=== PATIENT | female | born 1980 | race Caucasian/White ===

== ENCOUNTER 2023-11-10 04:09 | Day surgery (SDC) | payer OTHER ==
[2023-11-09 11:23] VITALS: BMI 23.6
[~2023-11-10 04:09] MED LIST: LIDOCAINE HCL 1%, 10 MG/ML (20ML VIAL) INF ONE; ceFAZolin SODIUM 1 GM VIAL IVPB ONE
[2023-11-10] MEDS ORDERED: LIDOCAINE HCL 1%, 10 MG/ML (20ML VIAL) ONE (14:25)
[2023-11-10] MEDS ORDERED: PROPOFOL 20 ML ONE (15:16)
[2023-11-10] MEDS ORDERED: MIDAZOLAM HCL 2 MG/2 ML SINGLE DOSE VIAL ONE (15:16)
[2023-11-10] MEDS ORDERED: ceFAZolin SODIUM 1 GM VIAL IVPB ONE (15:20)
[2023-11-10] MEDS ORDERED: LIDOCAINE HCL 1%, 10 MG/ML (20ML VIAL) INF ONE ×2 (15:24)
[2023-11-10 16:16] VITALS: RESP 20; TEMP 97.9
[2023-11-10 16:58] VITALS: BP 125/80; PULSE 58
[2023-11-10] MEDS ORDERED: ADENOSINE 6 MG/2 ML VIAL IVPUSH ONE (16:59)
== END 2023-11-10 17:00 | disposition home or self-care (01) ==
LOC: JASU-SURG 04:09
PROVIDERS: ATTEND Surgery
PROC: 0HBT0ZX Excision of Right Breast, Open Approach, Diagnostic (ICD-10-PCS; principal; 2023-11-10 14:00)
DX: D24.1 Benign neoplasm of right breast (principal)
CPT/HCPCS: 81025